=== PATIENT | male | born 1960 | race Two or more races ===

== ENCOUNTER 2024-11-08 16:42 | Emergency (ER) | payer BC, SELFPAY ==
[2024-11-08 17:07] VITALS: BP 177/74; PULSE 65; RESP 16; TEMP 36.9; O2SAT 98; BMI 28.5
--- NOTE | 2024-11-08 17:19 | XR_ITS ---
Examination: Testicular sonography complete Technique: Grayscale sonographic images testes, assessment arterial inflow venous outflow Doppler spectral analysis carful analysis Exam date and time: November 08, 2024 1744 hrs. Indications: Onset right testicular swelling and pain beginning 3 days ago. Findings: Right testis 4.3 x 2.8 x 3.8 cm Epididymis 23 mm 15 mm epididymal cyst Arterial flow testicle. No testicular mass Moderate hydrocele Left testis 4.9 x 2.3 x 3.1 cm Epididymis 16mm Arterial flow testicle. No testicular mass Impression: No testicular torsion or testicular mass Right epididymitis Moderate right hydrocele
--- NOTE | 2024-11-08 17:20 | PD.EDRME ---
Rapid Medical Screening Exam RME Arrival date/time: 11/08/24 16:42 64-year-old male with no known medical history presents to the emergency room with a chief complaint of right testicle tenderness and swelling x 3 days I have greeted and performed a focused initial assessment of this patient. A comprehensive ED assessment and evaluation of the patient, analysis of all test results, and completion of the medical decision making process will be conducted by additional ED providers. Chief Complaint: Urogenital-Male Vital signs: Vital Signs Temperature 98.5 F 11/08/24 17:07 Pulse Rate 65 11/08/24 17:07 Respiratory Rate 16 11/08/24 17:07 Blood Pressure 177/74 H 11/08/24 17:07 Pulse Oximetry (%) 98 11/08/24 17:07 Oxygen Delivery Method Room Air 11/08/24 17:07 Vital signs reviewed by provider: Yes
[2024-11-08 17:35] LABS: Basophils # (Auto) 0.1 Thou/mm3 (0.0-0.2); Basophils % (Auto) 1 % (0-2.5); Eosinophils # (Auto) 0.2 Thou/mm3 (0.0-0.5); Eosinophils % (Auto) 3 % (0-10); Hematocrit 40.5 % (41.0-53.0); Hemoglobin 14.3 g/dL (13.5-16.0); Immature Granulocytes % (Auto) 0 % (0-0); Immature Granulocytes Auto 0.02 Thou/mm3 (0.00-0.00); Lymphocytes # (Auto) 1.8 Thou/mm3 (1.0-4.8); Lymphocytes % (Auto) 24 % (10-50); Mean Corpuscular HGB Conc 35.3 g/dl (31.0-37.0); Mean Corpuscular Hemoglobin 30.2 pg (25.0-35.0); Mean Corpuscular Volume 85 fL (80-100); Monocytes # (Auto) 0.7 Thou/mm3 (0.0-0.8); Monocytes % (Auto) 9 % (0-12); Neutrophils # (Auto) 4.8 Thou/mm3 (1.8-7.7); Neutrophils % (Auto) 63 % (37-80); Nucleated Red Blood Cell % 0 /100 WBC (0); Platelet Count 288 Thou/mm3 (140-440); RDW Standard Deviation 40.7 fL (35.1-43.9); Red Blood Count 4.74 Miln/mm3 (4.50-5.90); White Blood Count 7.5 Thou/mm3 (3.8-10.6)
[2024-11-08 17:53] LABS: Alanine Aminotransferase 39 U/L (10-49); Albumin, Serum 4.6 gm/dL (3.4-4.8); Albumin/Globulin Ratio 1.6 (1.2-2.2); Alkaline Phosphatase 68 U/L (46-116); Anion Gap 4 (7-16); Aspartate Amino Transferase 101 U/L (0-34); BUN/Creatinine Ratio 18 Ratio (12-20); Bilirubin,Total 0.4 mg/dL (0.3-1.2); Blood Urea Nitrogen 21 mg/dL (9-23); Calcium 9.5 mg/dL (8.3-10.6); Calcium (Corrected) 9.5 mg/dL (8.5-10.1); Carbon Dioxide 27.9 mMol/L (20.0-31.0); Chloride 106 mMol/L (98-107); Creatinine (Component) 1.2 mg/dL (0.6-1.3); Estimated Creatinine Clearance 61.9 mL/min (>60); Globulin 2.8 gm/dL (2.3-3.5); Glucose 98 mg/dL (74-106); Osmolality,Calculated 278 (275-295); Sodium 138 mMol/L (136-145); Total Protein 7.4 gm/dL (5.7-8.2); eGFR > 60 See Note
[2024-11-08 18:01] LABS: Collection Type, Urine Clean Catch; Squamous Epithelial Cell,Urine 0 /hpf (0-5)
[2024-11-08 18:08] LABS: Bilirubin,Urine Negative (Negative); Blood,Urine Trace (Negative); Clarity,Urine Clear (Clear/Hazy); Color,Urine Colorless (Lt Yel-Yel); Culture Indicated,Urine Not Indicated; Glucose, Urine Negative (Negative); Ketones,Urine Negative (Negative); Leukocyte Esterase,Urine Negative (Negative); Nitrite,Urine Negative (Negative); Protein,Urine Negative (Neg - Trace); RBC,Urine 1 /hpf (0-3); Specific Gravity,Urine 1.012 (1.001-1.035); Urobilinogen,Urine Negative mg/dL (0.0-1.0); WBC,Urine 1 /hpf (0-5)
[2024-11-08 18:54] VITALS: BP 167/81; PULSE 66; RESP 18; TEMP 36.9; O2SAT 98
--- NOTE | 2024-11-08 19:13 | EDNOTE_ITS ---
ED Male Genitalurinary RME/HPI General Chief complaint: Urogenital-Male Stated complaint: RIGHT TESTICULAR PAIN/SWELLING Time Seen by Provider: 11/08/24 18:20 Arrival date/time: 11/08/24 16:42 RME / HPI RME / HPI Narrative: 64-year-old male with no known medical history presents to the emergency room with a chief complaint of right testicle tenderness and swelling x 3 days. Severity of symptoms mild. Patient denies any dysuria denies any fever denies any vomiting denies any abdominal pain denies any other complaints no medications taken prior to arrival. Related Data Home Medications ?Medication ?Instructions ?Recorded ?Confirmed ciprofloxacin HCl 500 mg tablet 500 mg PO BID 09/13/23 09/14/23 (Cipro) gemfibrozil 600 mg tablet 600 mg PO BID 09/13/2309/14 tamsulosin 0.4 mg capsule (Flomax) 0.4 mg PO QDAY 08/2709/14/23 Previous Rx's ?Medication ?Instructions ?Recorded ibuprofen 600 mg tablet 600 mg PO TID PRN pain #30 t abs 11/08/24 levofloxacin 500 mg tablet 500 mg PO QDAY #10 tabs 09/20 Allergies Allergy/AdvReac Type Severity Reaction Status Date / Time No Known Allergies Allergy Verified 09/14/23 07:51 Review of Systems Review of Systems Narrative Review of Systems: Review of system reviewed and within normal limits except mentioned in HPI ED Exam Narrative Physical exam: VITAL SIGNS: Reviewed. GENERAL APPEARANCE: Alert and interactive, follows commands, no acute distress, HEAD AND FACE: Non-traumatic. ENT: PERRL, pink conjunctivitis, eyelid no trauma, Mucous membrane moist. NECK: Supple, nontender, no nuchal rigidity. CHEST: No tenderness, no crepitus, no paradoxical movement, no retractions. LUNGS: Clear, well ventilated, symmetric, no rales, no wheezing, no ronchi, no stridor, good breath sounds bilaterally. HEART: Regular rate, regular rhythm, no murmur, no gallops. ABDOMEN: Soft, positive bowel sounds, nondistended, no guarding, nontender, no rebound, no masses, RECTAL: Deferred. GENITAL: Right testicular tenderness, with mild swelling, no redness NEUROLOGICAL: Gross motor function intact sensory function intact, Appropriate for age. MUSCULOSKELETAL: low back nontender, full range of motion. EXTREMITIES: Nontender, full range of motion. SKIN: Color pink, dry, no rash, no lacerations, no abrasions, no contusions. LYMPHATICS: Deferred. Course Quality Measures none Orders Category Date Time Status US testicular Stat Exams 11/08/24 17:19 Completed CBC Stat Lab 11/08/24 17:25 Completed CMP [Comprehensive Metabolic Panel] Stat Lab 11/08/24 17:25 Completed UA, C/S IF [Urinalysis, C/S if Indicated] Stat Lab 11/08/24 17:34 Completed Levofloxacin [Levaquin] Med 11/08/24 19:07 Discontinued 500 mg PO X1 ONE Vital Signs Vital signs: Vital Signs Temperature 98.5 F 11/08/24 17:07 Pulse Rate 65 11/08/24 17:07 Respiratory Rate 16 11/08/24 17:07 Blood Pressure 177/74 H 11/08/24 17:07 Pulse Oximetry (%) 98 11/08/24 17:07 Oxygen Delivery Method Room Air 11/08/24 17:07 Urogenital - Male MDM Narrative [facility] Narrative:: 64-year-old male with no known medical history presents to the emergency room with a chief complaint of right testicle tenderness and swelling x 3 days. Severity of symptoms mild. Patient denies any dysuria denies any fever denies any vomiting denies any abdominal pain denies any other complaints no medications taken prior to arrival. Laboratory workup unremarkable. No UTI. Ultrasound of the scrotum showed epididymitis and hydrocele on the right results discussed with the patient. Patient was given antibiotic prior to discharge. Was advised to see urologist as outpatient follow-up. Patient appears nontoxic and hemodynamically stable. Patient discharged home and instructed to follow-up with primary care provider in 24 to 48 hours. Instructed to return to the emergency department immediately if worsening of symptoms Patient data External records reviewed:: None Clinical information provided by:: patient Social determinants that could affect healthcare access:: none Patient has the following chronic illnesses:: None How is presenting disease/condition affected by chronic disease/condition?: exacerbated by Evaluation data The following diagnostics were reviewed and interpreted by me:: lab results and radiology exam(s) Lab and/or radiology exams considered but not ordered:: None Interpretation Summary: See results in MDM Medications / Prescriptions Medications or Prescriptions considered but not ordered:: None Medication administrations:: Medication Administration History Discontinued Medications Levofloxacin (Levofloxacin 250 Mg Tablet) 500 mg PO X1 ONE Stop: 11/08/24 19:08 Levaquin Consultations Consultation(s) initiated? (list below): No Diagnosis Urogenital Male Differential Diagnosis: urinary tract infection, urethritis and epididymitis Most likely diagnosis given after review of the tests above:: Hydrocele, epididymitis Admission Indicated Admission indicated?: not indicated Explain why admission is indicated or not indicated:: Stable Admission Request Was there a request for admission?: No Disposition Plan Disposition Plan: Discharge Discharge Attestation Discharge Attestation: The patient was given an opportunity to ask questions and understood the discharge instructions. Discharge instructions specifically effects, indications for sooner follow up or return to the emergency department, and the expected course of current diagnosis. Patient condition: Stable Discharge Plan Plan Patient Disposition: HOME (Self Care) Prescriptions/Referrals Prescriptions/Med Rec: New levofloxacin 500 mg tablet 500 mg PO QDAY Qty: 10 0RF ibuprofen 600 mg tablet 600 mg PO TID PRN (Reason: pain) Qty: 30 0RF No Action ciprofloxacin HCl [Cipro] 500 mg Tablet 500 mg PO BID tamsulosin [Flomax] 0.4 mg Capsule 0.4 mg PO QDAY gemfibrozil 600 mg Tablet 600 mg PO BID Referrals: Misbah Hua MD [Primary Care Provider] - In 1 week Problem List Clinical Impression: Epididymitis, Hydrocele Patient/Caregiver Discharge Instructions Discharge Activity: activity as tolerated Education Materials: ED Epididymitis Additional Instructions: Thank you for the opportunity for serving you today. You are stable for discharged . You are advised to: Follow-up with your PCP in 1 to 2 days and ask for referral to urologist Return to ED for worsening of symptoms Increase oral fluids Take medication as prescribed Print Language: [place] Stand Alone Forms: [place] Award Info., Patient Portal Info Letter THOMAS/MURPHY Supervising Physician THOMAS/MURPHY Supervising Physician: MD Sheba
[2024-11-08] MEDS: LEVOFLOXACIN 250 MG TABLET 500 MG PO (19:26)
[2024-11-08 19:28] VITALS: RESP 18
== END 2024-11-08 19:29 | disposition home or self-care (01) ==
PROVIDERS: Nurse Practitioner Family; Emergency Provider Emergency Medicine; PCP Family Medicine
DX: N45.1 Epididymitis (principal); N43.3 Hydrocele, unspecified
CPT/HCPCS: 36415; 76870; 80053; 81001; 85025; 99284; A9270